=== PATIENT | female | born 1955 | race Caucasian/White ===

== ENCOUNTER 2021-12-08 13:49 | Outpatient (CLI) | payer OTHER, SELFPAY ==
--- NOTE | 2021-12-08 14:01 | MM_ITS ---
WS: [id number] DIAGNOSTIC BILATERAL 3D TOMOSYNTHESIS DIGITAL MAMMOGRAM WITH CAD LEFT breast ultrasound, limited HISTORY: LEFT BREAST LUMP COMPARISON: 02/04/2018 TECHNIQUE: Bilateral craniocaudad, mediolateral oblique, and mediolateral views are submitted. Spot c ompression LEFT CC and MLO. Computer aided detection utilized. Breast composition: The breasts are heterogeneously dense, which may obscure small masses. There is a slightly lobulated well-circumscribed 4 mm nodule just inferior to the LEFT nipple. This corresponds to the palpable abnormality. Otherwise there are benign scattered calcifications in mild asymmetries . LEFT breast ultrasound, limited. Ultrasound is directed to the palpable area LEFT breast at 6:00. Adjacent to the area look. There ar e several dilated ducts. There is soft tissue within several of the adjacent ducts along with the sof t tissue nodule filling the duct. The soft tissue nodule measures 3 x 3 x 3 mm. No increased vascular ity is noted. There is a small amount of increased vascularity adjacent to this soft tissue nodule. MM/[place] [id number] IMPRESSION: BI-RADS: 4-Suspicious Finding-Biopsy Should Be Considered FOLLOW UP: Biopsy Recommended Mildly dilated ducts with internal debris and a 3 mm nodule within an adjacent duct, this corresponds to the patient's palpable abnormality. This is most lik es debris within the duct and ectasia. Papilloma and ductal neoplasm needs to be considered. This may be difficult to biopsy due to its small size and posit ion close to the nipple. Consider surgical evaluation with removal or attempted ultrasound biopsy.
== END 2021-12-08 13:50 | disposition home or self-care (01) ==
PROVIDERS: PCP Family Medicine; Visit Provider Family Medicine
DX: N63.25 Unspecified lump in the left breast, overlapping quadrants (principal)
CPT/HCPCS: 76642; 77062

== ENCOUNTER 2022-01-19 07:09 | Outpatient (CLI) | payer OTHER, SELFPAY ==
--- NOTE | 2022-01-19 07:21 | US_ITS ---
WS: [id number] ULTRASOUND-GUIDED LEFT BREAST BIOPSY HISTORY: Retroareolar nodule within a duct. COMPARISON: 12/08/2021, 02/04/2018 Procedure, risks and complications are explained to the patient. Medications are reviewed. Consent is obtained. The mass in the RIGHT breast is localized with ultrasound. Mass localizes within a retroareolar duct. Skin is cleansed with ChloraPrep and anesthetized with 1% buffered lidocaine. Small dermatome is mad e. Under sterile conditions mass is biopsied with a 14-gauge Achieve needle. Multiple core biopsies a re performed. Material placed in formalin and sent to pathology for review. No complications encounte red. Breast tissue marker (Bard ultrasound enhanced ribbon): Single. Patient left the radiology suite with no complications. Patient is instructed to return to [facility] or [facility] with any concerns. US/[place] [id number] IMPRESSION: 1. Uncomplicated core needle biopsy LEFT breast mass, ductal. PATHOLOGY: Benign proliferative breast tissue with intraductal papilloma. No ev idence atypia or malignancy. RECOMMENDATION: Follow-up LEFT breast ultrasound in 6 months.
== END 2022-01-19 07:10 | disposition home or self-care (01) ==
LOC: RAD 07:10
PROVIDERS: PCP Family Medicine; Visit Provider Family Medicine
DX: N63.42 Unspecified lump in left breast, subareolar (principal)
CPT/HCPCS: 19083; 88305

== ENCOUNTER 2024-11-08 12:37 | Outpatient (CLI) | payer MEDICARE, SELFPAY ==
--- NOTE | 2024-11-08 12:39 | MM_ITS ---
WS: [id number] BILATERAL 3D TOMOSYNTHESIS DIGITAL SCREENING MAMMOGRAPHY WITH CAD CLINICAL INFORMATION: SCREENING HISTORY: Screening mammogram. No current complaints. COMPARISON: 2021 TECHNIQUE: Bilateral CC and MLO views. FINDINGS: The breasts are composed of heterogeneous fibroglandular density tissue, which can limit the detection of small underlying mass lesions. Biopsy clip LEFT breast. A few incidental punctate calcifications. Focal ovoid densities outer LEFT breast appear more prominent compared to previous. Recommend LEFT breast diagnostic mammography and ultrasound in further evaluation. MM/MM [facility] tomosynthesis [id number] IMPRESSION: DENSITY: The breasts are heterogeneously dense, which may obscure small masses. BI-RADS: 0 - Incomplete: Need additional imaging evaluation FOLLOW UP: Need Additional Imaging
== END 2024-11-08 12:38 | disposition home or self-care (01) ==
LOC: RAD 12:38
PROVIDERS: PCP Family Medicine; Visit Provider Family Medicine
DX: Z12.31 Encounter for screening mammogram for malignant neoplasm of breast (principal); R92.333 Mammographic heterogeneous density, bilateral breasts; R92.1 Mammographic calcification found on diagnostic imaging of breast; N63.20 Unspecified lump in the left breast, unspecified quadrant
CPT/HCPCS: 77063; 77067

== ENCOUNTER 2024-11-27 14:12 | Outpatient (CLI) | payer MEDICARE, SELFPAY ==
--- NOTE | 2024-11-27 14:20 | MM_ITS ---
WS: [id number] LEFT 3D TOMOSYNTHESIS DIGITAL MAMMOGRAPHY WITH CAD CLINICAL INFORMATION: INCONCLUSIVE MAMMOGRAM HISTORY: Additional views COMPARISON: 11/08/2024 TECHNIQUE: 3 views of the left breast were obtained. FINDINGS: The left breast is composed of heterogeneous fibroglandular density tissue, which can limit the detection of small underlying mass lesions. Stable nodular densities upper outer LEFT breast as previously described. Ultrasound is pending. ULTRASOUND BREAST LEFT TECHNIQUE: Ultrasound left breast focused area of concern. CLINICAL INFORMATION: INCONCLUSIVE MAMMOGRAM COMPARISON: 2021 FINDINGS: Ultrasound upper outer LEFT breast. A few incidental simple cysts. Approximately 5 x 7 mm at the 2 o'clock position 4 cm from the nipple. Additional simple cyst in the 3 o'clock position measuring 7 x 5 mm 6 cm from the nipple No suspicious abnormalities to target for biopsy. [id number] IMPRESSION: DENSITY: There are scattered areas of fibroglandular density. BI-RADS: 2 - Benign. FOLLOW UP: 1 Year Follow-up Recommend return to annual screening mammography.
== END 2024-11-27 14:13 | disposition home or self-care (01) ==
PROVIDERS: PCP Family Medicine; Visit Provider Family Medicine
DX: R92.8 Other abnormal and inconclusive findings on diagnostic imaging of breast (principal); R92.323 Mammographic fibroglandular density, bilateral breasts; N60.12 Diffuse cystic mastopathy of left breast
CPT/HCPCS: 76642; 77061; G0279